=== PATIENT | female | born 1955 | race Caucasian/White ===

== ENCOUNTER 2017-02-09 05:53 | Inpatient (IN) | payer BC ==
[2017-02-02 12:21] VITALS: BMI 25.0
[~2017-02-09 05:53] MED LIST: PANTOPRAZOLE 40 MG TABLET (FP) PO ONE
[2017-02-09] MEDS ORDERED: CELECOXIB 200 MG CAPSULE PO ONE (06:11)
[2017-02-09] MEDS ORDERED: oxyCODONE HCL 10 MG SUSTAINED ACTING TABLET PO ONE (06:11)
[2017-02-09] MEDS ORDERED: ROPIVICAINE 0.2%/MORPH PF/KETOROLAC - 51ML DISP.SYRINGE IA ONE ×3 (06:11→12:20)
[2017-02-09] MEDS ORDERED: GABAPENTIN 300 MG CAPSULE (FP) PO ONE (06:11)
[2017-02-09] MEDS ORDERED: TRANEXAMIC ACID 1000 MG/10 ML VIAL IVPUSH ONE ×2 (06:11→12:21)
[2017-02-09] MEDS ORDERED: CEFAZOLIN 1 GM/D5W 50 ML IVPB ONE (06:11)
[2017-02-09] MEDS ORDERED: PANTOPRAZOLE 40 MG TABLET (FP) ONE (06:39)
[2017-02-09] MEDS ORDERED: CELECOXIB 200 MG CAPSULE ONE (06:40)
[2017-02-09] MEDS ORDERED: GABAPENTIN 300 MG CAPSULE (FP) ONE (06:40)
[2017-02-09] MEDS ORDERED: oxyCODONE HCL 10 MG SUSTAINED ACTING TABLET ONE (06:40)
[2017-02-09] MEDS ORDERED: TRANEXAMIC ACID 1000 MG/10 ML VIAL ONE ×2 (07:12→07:48)
[2017-02-09] MEDS ORDERED: ceFAZolin SODIUM 1 GM VIAL ONE ×3 (07:12→11:07)
[2017-02-09] MEDS ORDERED: MIDAZOLAM HCL 2 MG/2 ML SINGLE DOSE VIAL ONE ×2 (07:36→08:07)
[2017-02-09] MEDS ORDERED: DEXAMETHASONE SOD PHOSPHATE/PF 10 MG/ML SDV ONE (07:37)
[2017-02-09] MEDS ORDERED: ROPIVACAINE HCL 0.5% 30ML VIAL ONE (07:37)
[2017-02-09] MEDS ORDERED: BUPIVACAINE HCL/PF 0.5% (5MG/ML) 10 ML VIAL ONE (07:45)
[2017-02-09] MEDS ORDERED: PROPOFOL 20 ML ONE ×3 (07:47)
[2017-02-09] MEDS ORDERED: SUCCINYLCHOLINE CHLORIDE 200 MG/10 ML VIAL ONE (07:47)
--- NOTE | 2017-02-09 07:47 | HP ---
Admitting History and Physical - Admission Chief Complaint: left hip OA x years History of Present Illness: 61 year old female presents today in regards to her left hip. Longstanding history of left hip osteoarthritis. Patient admits to pain, difficulty ambulating and limited ROM. Patient has failed conservative treatment including PO medication, exercise program an activity modification. At this point, patient would like to proceed with a Left total hip arthroplasty (MAKOplasty). History Source: Patient - Past Medical History Gastrointestinal: Yes: GERD ...: No Psych: Yes: Depression Endocrine: Yes: Osteopenia - Past Surgical History Additional Past Surgical History: See written H&P - Advance Directives Advance Directives: Yes: Health Care Proxy - Smoking History Smoking history: Former smoker Have you smoked in the past 12 months: No If you are a former smoker, when did you quit?: 1978 - Alcohol/Substance Use Hx Alcohol Use: Yes (SOCIALLY) Home Medications - Allergies Allergies/Adverse Reactions: Allergies Allergy/AdvReac Type Severity Reaction Status Date / Time No Known Drug Allergies Allergy Verified 02/02/17 12:13 - Home Medications Home Medications: Ambulatory Orders Bupropion HCl [Wellbutrin Xl] 300 mg PO DAILY 02/02/17 Meloxicam [Mobic] 15 mg PO DAILY PRN 02/02/17 Pantoprazole Sodium [Protonix] 40 mg PO DAILY 02/02/17 Raloxifene HCl [Evista (Nf) -] 60 mg PO DAILY 02/02/17 Methenamine Hippurate [Hiprex [Nf] -] 0.5 gm PO HS 02/09/17 Review of Systems - Review of Systems Musculoskeletal: reports: Decreased ROM (Left hip), Joint Pain (Left hip) Physical Examination Vital Signs: Vital Signs Temperature 97.7 F 02/09/17 06:30 Pulse Rate 73 02/09/17 06:30 Respiratory Rate 16 02/09/17 06:30 Blood Pressure 140/83 02/09/17 06:30 O2 Sat by Pulse Oximetry (%) Constitutional: Yes: Well Nourished, No Distress Eyes: Yes: Conjunctiva Clear HENT: Yes: Atraumatic, Normocephalic Neck: Yes: Supple Cardiovascular: Yes: Regular Rate and Rhythm Respiratory: Yes: Regular Gastrointestinal: Yes: Soft ...Rectal Exam: Yes: Deferred Musculoskeletal: Yes: Joint Stiffness (Left hip) Assessment/Plan 61 year old female with history of longstanding left hip osteoarthritis. Patient complains of pain, difficulty ambulating, limited ROM and difficulty completing ADLs. Patient has failed conservative treatment including PO medication, activity modification and exercise program. Proceed with a left total hip arthroplasty (MAKOplasty).
[2017-02-09] MEDS ORDERED: ONDANSETRON 4 MG/2 ML VIAL ONE (07:48)
[2017-02-09] MEDS ORDERED: DEXAMETHASONE SOD PHOSPHATE 4 MG/1 ML VIAL ONE (07:48)
[2017-02-09] MEDS ORDERED: ePHEDrine SULFATE 50 MG/1 ML AMPULE ONE (09:50)
[2017-02-09] MEDS ORDERED: VANCOMYCIN 1,000 MG VIAL (RESTRICTED TO ID ONLY) IVPB ONE (12:21)
[2017-02-09] MEDS ORDERED: KETOROLAC TROMETHAMINE 30 MG/1 ML VIAL ONE (12:57)
[2017-02-09] MEDS ORDERED: ACETAMINOPHEN INJECTION 100 ML IVPB ONE (12:58)
[2017-02-09] MEDS ORDERED: ONDANSETRON 4 MG/2 ML VIAL IVPB PRN (12:58)
[2017-02-09] MEDS ORDERED: traMADol HCL 50 MG TABLET ONE (12:58)
[2017-02-09] MEDS ORDERED: MAG HYDROX/AL HYDROX/SIMETH 30 ML UNIT-DOSE CUP PO PRN (12:58)
[2017-02-09] MEDS ORDERED: MAGNESIUM HYDROX 2400MG/30ML ORAL SUSPENSION 30 ML CUP PO PRN (12:58)
--- NOTE | 2017-02-09 12:58 | OP ---
Operative Note - Note: Operative Date: 02/09/17 Pre-Operative Diagnosis: left hip OA Operation: left HERON Post-Operative Diagnosis: Same as Pre-op Surgeon: Kapil Olivares Police Clerk: Shona Farah Anesthesia: Spinal Estimated Blood Loss (mls): 400
[2017-02-09] MEDS ORDERED: LACTATED RINGERS SOLUTION 1,000 ML IV SCH (13:00)
[2017-02-09] MEDS ORDERED: ACETAMINOPHEN 1000 MG/100 ML VIAL (NON FORMULARY) IVPB ONE (13:01)
[2017-02-09] MEDS ORDERED: oxyCODONE HCL 5 MG TABLET PO PRN ×2 (13:02)
[2017-02-09] MEDS: KETOROLAC TROMETHAMINE 30 MG/1 ML VIAL IVPUSH SCH ×2 (13:14→20:00)
[2017-02-09] MEDS: traMADol HCL 50 MG TABLET PO SCH ×2 (13:16→20:00)
[2017-02-09] MEDS: ACETAMINOPHEN 325 MG TABLET (FP) PO SCH (18:10)
[2017-02-09] MEDS: CEFAZOLIN 1 GM/D5W 50 ML IVPB SCH (18:10)
[2017-02-09] MEDS: ASCORBIC ACID 500 MG TABLET (FP) PO SCH (21:32)
[2017-02-09] MEDS: SENNOSIDES/DOCUSATE COMBO (SENNA PLUS) TABLET (UD) PO SCH (21:32)
[2017-02-09] MEDS: GABAPENTIN 300 MG CAPSULE (FP) PO SCH (21:33)
[2017-02-09] MEDS: oxyCODONE HCL 10 MG SUSTAINED ACTING TABLET PO SCH (21:33)
[2017-02-09] MEDS: [UNRECOGNIZED DRUG - REMARK] PO SCH (21:34)
[2017-02-09] MEDS: CELECOXIB 200 MG CAPSULE PO SCH (21:34)
[2017-02-10] MEDS: ACETAMINOPHEN 325 MG TABLET (FP) PO SCH ×4 (00:50→18:26)
[2017-02-10] MEDS: CEFAZOLIN 1 GM/D5W 50 ML IVPB SCH (02:03)
[2017-02-10] MEDS: KETOROLAC TROMETHAMINE 30 MG/1 ML VIAL IVPUSH SCH ×2 (02:03→06:20)
[2017-02-10] MEDS: traMADol HCL 50 MG TABLET PO SCH ×5 (02:05→18:25)
[2017-02-10 08:13] LABS: ANION GAP 5 (8-16); CALCIUM 8.6 mg/dl (8.4-10.2); CO2 28 mmol/L (22-28); CREATININE 0.6 mg/dl (0.6-1.3); GLUCOSE,RANDOM 97 mg/dl (74-106)
[2017-02-10 08:14] LABS: MCHC 33.6 g/dl (32.0-36.0); MEAN CELL VOLUME 92.2 fl (80-96); MEAN PLT VOLUME 9.3 fl (7.5-11.1); PLATELET COUNT 162 K/MM3 (134-434); RDW 11.9 % (11.6-15.6)
[2017-02-10] MEDS: ASPIRIN 325 MG TABLET PO SCH (08:23)
[2017-02-10] MEDS: PANTOPRAZOLE 40 MG TABLET (FP) PO SCH (09:26)
[2017-02-10] MEDS: ASCORBIC ACID 500 MG TABLET (FP) PO SCH ×2 (09:26→21:16)
[2017-02-10] MEDS: CELECOXIB 200 MG CAPSULE PO SCH ×2 (09:26→21:16)
[2017-02-10] MEDS: SENNOSIDES/DOCUSATE COMBO (SENNA PLUS) TABLET (UD) PO SCH ×2 (09:26→21:17)
[2017-02-10] MEDS: GABAPENTIN 300 MG CAPSULE (FP) PO SCH ×2 (09:26→21:17)
[2017-02-10] MEDS: MULTIVITAMINS (DAILY MVI) TABLET (FP) PO SCH (09:26)
[2017-02-10] MEDS: oxyCODONE HCL 10 MG SUSTAINED ACTING TABLET PO SCH ×2 (09:27→21:16)
[2017-02-10] MEDS: [UNRECOGNIZED DRUG - REMARK] PO SCH (09:46)
[2017-02-10] MEDS ORDERED: PATIENT'S OWN MEDICATION (NON-FORMULARY) (Raloxifene Hcl 60 MG) PO SCH (10:00)
[2017-02-10 14:14] VITALS: TEMP 98
--- NOTE | 2017-02-10 14:15 | PN ---
Progress Note (short form) - Note Progress Note: 61F POD1 s/p left total hip replacement under spinal anesthetic with lumbar plexus and sciatic nerve blocks for post operative pain doing well. Pt states that pain is well controlled, reports no anesthetic complications. Mild sensory and motor deficits quickly resolving as blocks wear off.
[2017-02-10] MEDS ORDERED: PT OWN MED DRAWER 7, Y5N ONE (20:52)
[2017-02-10] MEDS: [UNRECOGNIZED DRUG - REMARK] PO SCH (21:17)
--- NOTE | 2017-02-10 23:03 | PN ---
Progress Note (short form) - Note Progress Note: Pt seen and examined. Comfortable. Doing well. AVSS Selected Entries 02/10/17 02/10/17 21:00 22:00 Temperature 98.0 F Pulse Rate 76 Respiratory 18 Rate Blood Pressure 88/50 O2 Sat by Pulse 97 Oximetry (%) Oxygen Delivery Room Air Method Laboratory Tests 02/10/17 02/10/17 07:00 07:00 WBC 6.0 Hgb 9.8 L Hct 29.1 L Plt Count 162 Sodium 131 L Potassium 4.2 Chloride 98 Carbon Dioxide 28 Anion Gap 5 L BUN 13 Creatinine 0.6 Random Glucose 97 Calcium 8.6 Gen: NAD LLE: c/d/i, NVID A/P 61yo female POD#1 s/p L HERON 1. PT/OOB - WBAT LLE 2. D/C home tomorrow after PT; f/u in office in 10-14 days.
[2017-02-11] MEDS: traMADol HCL 50 MG TABLET PO SCH (00:17)
[2017-02-11] MEDS: ACETAMINOPHEN 325 MG TABLET (FP) PO SCH (00:17)
--- NOTE | 2017-02-11 08:12 | DS ---
Physical Examination Vital Signs: Vital Signs Temperature 98.0 F 02/10/17 22:00 Pulse Rate 76 02/10/17 22:00 Respiratory Rate 18 02/10/17 22:00 Blood Pressure 88/50 02/10/17 22:00 O2 Sat by Pulse Oximetry (%) 97 02/10/17 21:00 Discharge Summary Reason For Visit: OSTEOARTHRITIS LEFT HIP Current Active Problems Osteoarthritis of left hip (Acute) Procedures: Principal: left HERON Hospital Course: Admitted for elective surgery. Procedure performed without complications. Pt received postoperative antibiotic prophylaxis and DVT ppx. Ambulated with physical therapy. Stable for discharge home with outpatient followup. Condition: Stable - Instructions Diet, Activity, Other Instructions: Dr Olivares - Hip Replacement Instructions Keep the Aquacel dressing on until removed by Dr. Olivares in 10-14 days - it is antibacterial and waterproof and you can shower with it on. Call the office for a follow-up appointment with Dr. Olivares in 10-14 days. Take one Aspirin 325mg daily for 6 weeks to prevent blood clots in your legs. Take one Pantoprazole 40mg daily for 6 weeks to protect against heartburn and ulcers. Take Celebrex 200mg twice daily for 30 days to reduce swelling and inflammation. Take a multivitamin, additional vitamin C supplement, and stool softener daily. For pain: *Mild pain (1-3/10): Take 1 Tramadol tablet every 4 hours as needed. Moderate pain (4-6/10): Take 1 Tramadol tablet and 1 Percocet tablet every 4 hours as needed. Severe pain (7-10/10): Take 1 Tramadol tablet and 2 Percocet tablets every 4 hours as needed. Activity: You can put as much weight on the operative leg as you want. For the first 6 weeks, all you need to do is walk around the house, go up/down stairs, and sit down/get up. After 6 weeks when everything is healed (and bone has grown into the implant) you will be sent for more intensive outpatient physical therapy. Always use a walker or cane for balance and to prevent falls. Disposition: VNS/HOME HEALTH CARE - Home Medications Comprehensive Discharge Medication List: Ambulatory Orders Bupropion HCl [Wellbutrin Xl] 300 mg PO DAILY 02/02/17 Raloxifene HCl [Evista (Nf) -] 60 mg PO DAILY 02/02/17 Methenamine Hippurate [Hiprex [Nf] -] 0.5 gm PO HS 02/09/17 Ascorbic Acid [Vitamin C -] 500 mg PO BID tablet 02/11/17 Aspirin [ASA -] 325 mg PO DAILY@0800 tablet 02/11/17 Celecoxib [CeleBREX -] 200 mg PO BID #60 tab 02/11/17 Multivitamins [Multivit ([facility] Form[facility])] 1 tab PO DAILY tab 02/11/17 Oxycodone HCl/Acetaminophen [Percocet 5-325 mg Tablet] 1 - 2 tab PO Q4H PRN #60 tablet MDD 8 02/11/17 Pantoprazole Sodium [Protonix] 40 mg PO DAILY #40 tab 02/11/17 Sennosides/Docusate Sodium [Pericolace -] 2 tablet PO BID tablet 02/11/17 Tramadol HCl [Ultram -] 50 mg PO Q4H PRN #90 tablet MDD 6 02/11/17
[2017-02-11 08:41] LABS: ANION GAP 7 (8-16); CALCIUM 8.6 mg/dl (8.4-10.2); CO2 26 mmol/L (22-28); CREATININE 0.5 mg/dl (0.6-1.3); GLUCOSE,RANDOM 100 mg/dl (74-106)
[2017-02-11 09:03] LABS: MCHC 34.1 g/dl (32.0-36.0); MEAN PLT VOLUME 9.5 fl (7.5-11.1); PLATELET COUNT 137 K/MM3 (134-434); RDW 11.7 % (11.6-15.6); WHITE BLOOD COUNT 8.8 K/mm3 (4.0-10.8)
[2017-02-11 09:49] VITALS: BP 104/58; PULSE 89
[2017-02-11] MEDS: oxyCODONE HCL 10 MG SUSTAINED ACTING TABLET PO SCH (09:49)
[2017-02-11] MEDS: ASPIRIN 325 MG TABLET PO SCH (09:49)
[2017-02-11] MEDS: SENNOSIDES/DOCUSATE COMBO (SENNA PLUS) TABLET (UD) PO SCH (09:50)
[2017-02-11] MEDS: GABAPENTIN 300 MG CAPSULE (FP) PO SCH (09:50)
[2017-02-11] MEDS: CELECOXIB 200 MG CAPSULE PO SCH (09:50)
[2017-02-11] MEDS: [UNRECOGNIZED DRUG - REMARK] PO SCH (09:50)
[2017-02-11] MEDS: MULTIVITAMINS (DAILY MVI) TABLET (FP) PO SCH (09:51)
[2017-02-11] MEDS: ASCORBIC ACID 500 MG TABLET (FP) PO SCH (09:51)
[2017-02-11] MEDS: PANTOPRAZOLE 40 MG TABLET (FP) PO SCH (09:51)
--- NOTE | 2017-02-13 19:29 | PATH ---
Surgical Pathology Report Patient Name: EJ CHANG Med. Rec. #: [id number] /Age/Gender: 1955 (Age: 61) / F Account: [id number] Location: [facility] Taken: 02/09/2017 Received: 02/09/2017 Reported: 02/13/2017 Physicians: Kapil Olivares M.D. Specimen(s) Received LEFT HIP FEMORAL HEAD Clinical History Left hip osteoarthritis Final Diagnosis FEMORAL HEAD, LEFT HIP, TOTAL HIP REPLACEMENT: DEGENERATIVE JOINT DISEASE. Electronically Signed Monique Jarquin M.D. Gross Description Received in formalin, labeled "left hip femoral head" is a 5.5 x 5.2 x 4.6 cm portion of bone consistent with a femoral head. The bone at the femoral neck is firm and uniform. The articular cartilage is markedly irregular and there is a 5.1 x 2.7 cm area of eburnation. Bony spurring is noted at the periphery. The bone of the cut surface is firm and uniform. A small amount of attached soft tissue is present. Preparator sections are submitted in one cassette for decalcification. [facility]/02/10/2017 [facility]/02/10/2017
--- NOTE | 2017-02-19 13:19 | SPEC ---
DATE OF OPERATION: 02/09/2017 PREOPERATIVE DIAGNOSIS: Left hip osteoarthritis. POSTOPERATIVE DIAGNOSIS: Left hip osteoarthritis. PROCEDURE: Left total hip replacement with MAKOplasty robotic navigation. ATTENDING: Margi Aguilar MD BALLAST INSPECTOR: BR[place] Wise ANESTHESIA: Spinal plus sedation. ESTIMATED BLOOD LOSS: 400 mL COMPLICATIONS: None. SPECIMENS: Resected bone was sent for pathological analysis. DISPOSITION: The patient was taken to the PACU in stable condition. IMPLANTS USED: Myriam Accolade II size 5 femoral component with 127-degree neck angle, a 52-mm Tritanium acetabular component with MDM liner, MDM 38-mm head ball with +8 mm offset inner head, and 20-mm, 16-mm, and 40-mm acetabular fixation screws. INDICATIONS: This is a 61-year-old female who presented to the office complaining of severe left hip pain. She was seen and examined by Dr. Aguilar and diagnosed with left hip severe osteoarthritis. The patient had initially been treated conservatively with injections, medications, and physical therapy but continued to have severe pain. She was subsequently indicated for left total hip replacement with MAKOplasty robotic navigation. The risks, benefits, and alternatives to the procedure were explained to the patient in great detail, and she elected to proceed with the surgery. DESCRIPTION OF PROCEDURE: On the day of surgery, the patient was taken to the operating room and placed on the OR table. Spinal anesthesia was administered by the anesthesiologist. The patient was then positioned in the lateral decubitus position on the table and all bony prominences were padded. An axillary roll was placed. The operative hip was then prepped and draped in the usual sterile fashion and intravenous antibiotics were given for infection prophylaxis. A surgical time-out was then performed with the team, and the patients identity, procedure, side, availability of implants, and the administration of antibiotics were confirmed. An approximately 15-cm longitudinal incision was made through the skin centered on the greater trochanter of the hip. This dissection was carried down through the subcutaneous tissues to the deep fascia. This fascia was then incised and a Cobra was placed around the inferior femoral neck. Electrocautery was used to reflect the anterior 40% of the gluteus medius and minimus starting at the musculotendinous junction and leaving a cuff for closure. This was reflected to reveal the capsule of the hip joint. An anterior capsulectomy was performed and the femoral head and neck were visualized. Grade 4 changes were noted diffusely throughout the joint. At this point, three small stab incisions were made superior to the main incision along the iliac crest. Three self-drilling Steinmann pins were then placed and the Personally pelvic array was attached. Reference points on the limb were then entered into the robotic device and the limb length deficiency, offset, and femoral neck resection level were then calculated by the software. The hip was then dislocated with traction and external rotation. An oscillating saw was used to make the femoral neck cut at the level previously templated, and the femoral head was removed. Attention was then turned to the acetabulum. Retractors were then placed around the acetabulum and the labrum was removed. An acetabular checkpoint pin and the Personally software were used to register the contours of the acetabulum. The acetabulum was then reamed in a single stage to the preoperatively templated size using the Personally robotic arm. The appropriately sized cup was then impacted and had solid fixation as well as the preset inclination and version of 40 and 20 degrees, respectively. A polyethylene liner was then placed in the cup. Attention was then turned back to the femur, which was externally rotated for improved visualization. A femoral neck elevator was used to present the femoral neck cut, a box osteotome was used to enter the femoral canal, and a canal finder was used to go down the femoral shaft. The Mehul broaches were used sequentially until the optimal scratch fit was achieved. This correlated with the preoperatively templated size. From here, several different offset head and neck configurations were tested until excellent stability and length were obtained. These measurements were quantified using the Personally software. All trial components were then removed, the femur was copiously irrigated, and the final components were placed. Leg length and stability were checked again and found to be excellent. Irrigation was performed again. Wound closure was started by repairing the abductor muscles with a no. 2 FiberWire stitch in a Krackow configuration passed through bone tunnels in the greater trochanter and tied over a bony bridge. This repair was then reinforced with a 0 V-Loc 180 barbed suture. Next, no. 1 Polysorb and 0 V-Loc 180 were used to close the fascia. The deep subcutaneous tissue was closed with no. 1 Polysorb sutures, and 2-0 Polysorb was used for the superficial subcutaneous tissue. The skin was closed using both 3-0 V-Loc 90 suture in a running subcuticular fashion and SwiftSet skin adhesive. The Mehul array and pins were removed from the iliac crest and the stab incision sites were irrigated and closed with 4-0 Polysorb sutures and SwiftSet skin adhesive. Once this was completed, a sterile dressing was applied. The patient was then awakened and taken to the PACU in stable condition. ADDENDUM: After final components were placed, the wound was thoroughly irrigated with normal saline, and a 3-minute dilute Betadine lavage was performed according to the CIRCLE protocol. Following this, the wound was again irrigated with normal saline pulse lavage and wound closure was begun. MARGI AGUILAR M.D. [id number]
== END 2017-02-11 11:55 | disposition home health service (06) | DRG 470 ==
LOC: FM/S 05:53
PROVIDERS: ADMIT Student in an Organized Health Care Education/Training Program; ATTEND Student in an Organized Health Care Education/Training Program
PROC: 0SRB0JA Replacement of Left Hip Joint with Synthetic Substitute, Uncemented, Open Approach (ICD-10-PCS; principal; 2017-02-09 08:47)
DX: M16.12 Unilateral primary osteoarthritis, left hip (principal); M85.80 Other specified disorders of bone density and structure, unspecified site; Z87.891 Personal history of nicotine dependence
CPT/HCPCS: 36415; 73502-TC-LT; 80048; 85027; 88304-TC; 88311-TC; 94010; 94760; 97116-GP; 97161-GP